=== PATIENT | male | born 1940 | race Caucasian/White ===

== ENCOUNTER 2024-04-07 03:57 | Emergency (ER) | payer MEDICARE, MEDICAID ==
[~2024-04-07] VITALS: Ht 180.3 cm; Wt 79.5 kg
[~2024-04-07 03:57] MED LIST: ACET325T65 PO; ASPI-611 PO; CALC355O3 PO; CARB-491 PO; CLON1TAB96 PO; DULR RC; FLUO10CA65 PO; LACT1CAP65 PO; MELA3TAB39 PO; METO50TA17 PO; NA P133E4 RC; OMEP20CA15 PO; ONDA4TAB6 PO; POLY119P2 PO; RISP1TAB13 PO; SENN-360 PO
[2024-04-07] MEDS: haloperidol lactate 5mg/ml inj IM ONE (04:24)
[2024-04-07 04:27] VITALS: BP 137/79; PULSE 71; TEMP 98.2; O2SAT 100
[2024-04-07] MEDS: LORazepam 2 mg/ml vial IM ONE (05:12)
[2024-04-07 07:16] VITALS: RESP 16
[2024-04-07 07:29] LABS: BASOPHILS % (AUTO) 0.3 % (0-1); EOSINOPHILS % (AUTO) 0.4 % (0-6); HEMATOCRIT 39.3 % (42.0-52.0); HEMOGLOBIN 13.4 g/dl (14.0-17.9); LYMPHOCYTES # (AUTO) 1.5 X10'3 (1.1-4.8); LYMPHOCYTES % (AUTO) 12.8 % (21-51); MEAN CORPUSCULAR HEMOGLOBIN 30.9 PG (27.0-31.0); MEAN CORPUSCULAR HGB CONC 34.2 g/dL (33.0-36.5); MEAN CORPUSCULAR VOLUME 90.4 FL (78-98); MEAN PLATELET VOLUME 8.1 FL (7.4-10.4); MONOCYTES # (AUTO) 1.4 X10'3 (0-0.9); MONOCYTES % (AUTO) 11.7 % (2-12); NEUTROPHILS # (AUTO) 8.9 X10'3 (1.8-7.7); NEUTROPHILS % (AUTO) 74.8 % (42-75); PLATELET COUNT 296 X10'3 (140-440); RED BLOOD COUNT 4.35 X10'6 (4.70-6.10); RED CELL DISTRIBUTION WIDTH 12.9 % (11.5-14.5)
[2024-04-07 08:01] LABS: ALANINE AMINOTRANSFERASE 19 U/L (12-78); ALBUMIN 3.8 G/DL (3.4-5.0); ALBUMIN/GLOBULIN RATIO 1.3 (1.1-1.5); ALKALINE PHOSPHATASE 70 IU/L (46-116); ANION GAP 18 (8-16); ASPARTATE AMINO TRANSFERASE 24 U/L (10-37); BILIRUBIN,TOTAL 0.9 MG/DL (0.1-1.0); BLOOD UREA NITROGEN 24 MG/DL (7-18); BUN/CREATININE RATIO 22.9 (10.0-20.0); CALCIUM 8.1 MG/DL (8.5-10.1); CHLORIDE 105 MMOL/L (99-107); CREATININE 1.05 MG/DL (0.60-1.10); GLUCOSE 94 MG/DL (70-104); POTASSIUM 3.1 MMOL/L (3.5-5.1); SODIUM 142 MMOL/L (135-145); TOTAL CARBON DIOXIDE 18.9 MMOL/L (24-32); TOTAL PROTEIN 6.8 G/DL (6.4-8.2); eCRCL 57 ML/MIN; eGFR 67 ML/MIN
[2024-04-07 08:05] LABS: LIPASE 41 U/L (16-77); PRO BRAIN NATRIURETIC PEPTIDE 1114 PG/ML (0-450)
[2024-04-07] MEDS: normal saline 1000ML IV soln IVB ONE (09:35)
== END 2024-04-07 12:54 | disposition home or self-care (01) ==
LOC: ER 03:58
DX: E86.0 Dehydration (principal); F03.90 Unspecified dementia, unspecified severity, without behavioral disturbance, psychotic disturbance, mood disturbance, and anxiety; E78.00 Pure hypercholesterolemia, unspecified; G20.A1 Parkinson's disease without dyskinesia, without mention of fluctuations; I10 Essential (primary) hypertension; F32.A Depression, unspecified; I48.91 Unspecified atrial fibrillation; F10.90 Alcohol use, unspecified, uncomplicated; Z90.49 Acquired absence of other specified parts of digestive tract; Z79.82 Long term (current) use of aspirin
CPT/HCPCS: 36415; 70450; 74176; 80053; 82140; 83690; 83880; 84145; 84484; 85025; 93005; 96372; 99285; J1630; J2060; J7030